=== PATIENT | female | born 1960 | race Hispanic/Latino ===

== ENCOUNTER 2016-07-13 15:07 | Emergency (ER) | payer OTHER, MEDICAID ==
[2016-07-13 17:07] VITALS: BP 164/108
== END 2016-07-13 20:47 | disposition left against medical advice (07) ==
LOC: ED 15:07
DX: M25.511 Pain in right shoulder (principal); R07.81 Pleurodynia; Z53.21 Procedure and treatment not carried out due to patient leaving prior to being seen by health care provider; V49.59XA Passenger injured in collision with other motor vehicles in traffic accident, initial encounter; Y93.9 Activity, unspecified; Y92.9 Unspecified place or not applicable; Y99.9 Unspecified external cause status